=== PATIENT | female | born 1930 | race Caucasian/White ===

== ENCOUNTER 2017-04-06 09:00 | Outpatient (RCR) | payer MEDICARE, OTHER ==
--- NOTE | 2017-03-29 10:22 | PT INITIAL EVALUATION ---
MEDICAL DIAGNOSIS: gait and balance disturbance and low back pain TREATMENT DIAGNOSIS: same, positional vertigo DATE OF ONSET: 06/21/16 SUBJECTIVE: Celestina Lawler presents to physical therapy with complaints of dizziness with positional changes, dragging feet with ambulation, decreased energy, not feeling steady on her feet, and low back pain. She reports that she was given a medication for her back and states that it is feeling better, however, it disturbed her bowels and was placed on another medication for her bowels, which has been helping too. She states that she has dizziness with changes positions and states that it feels like the room is spinning. Furthermore, she reports that she wore a heart monitor for 2 days and will find the results out today or tomorrow. She denies any falls. She states that she has come close but continues to bounce back and forth off the vyas. REHAB PROBLEM LIST: Increased Pain Decreased ROM Decreased Strength Decreased Endurance Decreased Balance Decreased Function Decreased ADL's Decreased Mobility Decreased Gait PREVIOUS MEDICAL HISTORY: See EMR OCCUPATION: Retired OBJECTIVE: Posture: She demonstrated B rounded shoulders, increased thoracic kyphosis, decreased lumbar lordosis. ROM: Trunk AROM: flexion, extension, R/L sidebending: WFL's, B hip flexion, extension, abduction, adduction, B knee flexion extension, B ankle PF and DF: WFL's. Strength: Will test strength next session as we did not have enough time since we focused most of our time on the vestibular examination and treatment Special Tests: (+) rodrigo case pike R/L. (-) horizontal canal. (-) VOR, tracking in an H formation: no deviations...will test balance, low back pain: next session since we focused on resolving the vertigo Mobility: Modified independent Gait: She demonstrated the following gait mechanics: decreased velocity, decreased hip and knee flexion, decreased B foot clearance, increased deviation to the R/L, decreased B pelvic rotation, increased double limb support, and decreased swing phases of gait. Balance: Will test balance next session as we did not have enough time since we focused most of our time on the vestibular examination and treatment Other Objective Findings: BP: 142/80, SPO2%: 93%, HR: 76 BPM ASSESSMENT: Celestina will benefit from skilled physical therapy addressing the listed impairments to improve function, return to prior level of function, and improve QOL. Short Term Goals 2 weeks: Pt will be able to function with 0/10 dizziness (related to vertigo) with positional changes to improve function and QOL. 4 weeks: Pt will demonstrate centralized low back symptoms to improve function and QOL. 6 week: Pt will demonstrate abolished low back symptoms (0/10) to improve function and QOL. 8 weeks: Pt will be able to improve balance strategies, gait mechanics ( decreased shuffling of feet), and improve overall endurance to return to prior level of function. Patient's Goals improve energy, steadiness on her feet, and get rid of dizziness PLAN: Patient to be seen for Manual Therapy/STM/MET Strengthening/condition Ice/Heat Range of Motion Spinal Stabilization Work Hardening/Cond Stretching Neuromuscular Re-ed Closed Chain Program Electrical Stim Posture/Body mechanics Gait Trg/Balance Trg Home Exercise Program Therapeutic Activities 2-3x/week for 2 Months If you have any questions, comments, or concerns about this report or plan, please contact me at . Thank you, Efraín Delgado, PT, DPT [facility]
[~2017-04-06 09:00] MED LIST: DIPH-911 PO; HYDR-385 PO; HYDR-4309 PO; IBUP-56 PO; LEVO-3 PO; LOR5/325 PO; MECL25TA9 PO; MULT-912 PO; NAPR220C12 PO; NITR-105 PO; ONDA4TAB PO; PANT40TA65 PO; TIZA4CAP3 PO; TRAM-420 PO; TYLENOL PM PO; VALE530C2 PO
[2017-04-07] MEDS ORDERED: TRAM-420 PO (12:01)
[2017-04-07] MEDS ORDERED: MECL25TA9 PO (14:09)
--- NOTE | 2017-04-14 12:04 | PT PLAN OF CARE ---
Physician: NABOR Akers Patient is being seen: 1-2x/week Therapist: Efraín Delgado, PT, DPT Medical Diagnosis: gait and balance disturbance and low back pain Treatment Diagnosis: same, positional vertigo Date of Onset: 06/21/16 Date of Initial Evaluation: 03/29/17 Date patient was last seen: 04/06/17 Number of treatments: 3 Number of cancellations/No shows: 0 INTERVENTIONS: Manual Therapy/STM/MET Strengthening/condition Ice/Heat Range of Motion Spinal Stabilization Work Hardening/Cond Stretching Neuromuscular Re-ed Closed Chain Program Electrical Stim Posture/Body mechanics Gait Trg/Balance Trg Home Exercise Program Therapeutic Activities GOALS: 2 weeks: Pt will be able to function with 0/10 dizziness (related to vertigo) with positional changes to improve function and QOL. MET 4 weeks: Pt will demonstrate centralized low back symptoms to improve function and QOL. Progressing 6 week: Pt will demonstrate abolished low back symptoms (0/10) to improve function and QOL. Progressing 8 weeks: Pt will be able to improve balance strategies, gait mechanics ( decreased shuffling of feet), and improve overall endurance to return to prior level of function. Progressed PATIENT'S GOAL: improve energy, steadiness on her feet, and get rid of dizziness Status of Patient's Goals: Progressed in PT Patient Compliance: Good Prognosis: Good Reasons for discontinuing therapy: This is a discharge note for Celestina Lawler. She was progressing well within PT with abolished vertigo symptoms and we were starting to address her low back pain and she was able to demonstrate centralized low back symptoms by the end of our last session. She reports that she developed a ruptured ear drum and has to be discharged in order to resolve the current medical condition prior to proceeding with PT. Posture: She demonstrated B rounded shoulders, increased thoracic kyphosis, decreased lumbar lordosis. ROM: Trunk AROM: flexion, extension, R/L sidebending: WFL's, B hip flexion, extension, abduction, adduction, B knee flexion extension, B ankle PF and DF: WFL's. Strength: Will test strength next session as we did not have enough time since we focused most of our time on the vestibular examination and treatment Palpation: Special Tests: (-) rodrigo case pike R/L. (-) horizontal canal. (-) VOR, tracking in an H formation: no deviations Mobility: Modified independent If you have any questions, please contact me at [phone]. Thank you, Efraín Delgado PT, DPT [facility]
== END 2017-06-27 ==
LOC: PT 09:00
PROVIDERS: ATTEND Nurse Practitioner Family
DX: M54.5 Low back pain (principal); H81.10 Benign paroxysmal vertigo, unspecified ear; R26.89 Other abnormalities of gait and mobility
CPT/HCPCS: 97162

== ENCOUNTER → 2018-07-26 | Outpatient (CLI) | payer MEDICARE, OTHER ==
[~2018-07-26] MED LIST changes: -HYDR-4309 PO; +HYDR-653 PO
--- NOTE | 2018-07-26 13:31 | RADIOLOGY IMAGING REPORT ---
FACILITY: [facility] [place] PATIENT NAME: Celestina Lawler : 1930 MR: [id number] V: [id number] EXAM DATE: ORDERING PHYSICIAN: NOHEMI NAGY TECHNOLOGIST: [place] [facility] [place]estina Law[place] : 1930 Visit/Account:[id number] Date of Sevice: 07/26/2018 Study: MRI lumbar spine without gadolinium contrast. Indication:Low back pain Comparison study:None Technique:Multiplanar MRI sequences were obtained through the lumbar spine without the use of gadolin ium contrast. Findings:The examination demonstrates the presence of normal alignment of the lumbar vertebrae. Ther e is a levoscoliosis of the lumbar spine noted. There is no abnormal signal identified within the krystal mbar or sacral vertebrae. The conus medullaris is located posterior to the T12/L1 disc space level. There is no evidence of abnormality of the lumbar nerve roots. Disc spaces: L1/2: At this level, there is a diffuse disc bulge. There is a superimposed right lateral disc protr usion. There is severe right and mild left neural foraminal stenosis. There is no significant spina l stenosis. L2/3: At this level, there is a diffuse disc bulge with a superimposed right lateral disc protrusion. There is moderate to severe right and no significant left neural foraminal stenosis. There is no s ignificant spinal stenosis. L3/4: At this level, there is a mild diffuse disc bulge. There is no significant spinal stenosis. T here is mild right and no significant left neural foraminal stenosis. L4/5: At this level, there is a diffuse disc bulge. There is facet and ligamentous hypertrophy. The re is moderate spinal stenosis. There is mild to moderate right and moderate to severe left neural f oraminal stenosis. L5/S1: At this level, there is a diffuse disc bulge. There is facet and ligamentous hypertrophy. Th ere is no significant spinal stenosis. There is mild right and moderate left neural foraminal stenos is. 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 There is moderate spinal stenosis present at the L4-5 level. Please see the body of the report for description of individual disc levels. Report Dictated By: Dylon Hilton at 07/26/2018 1:24 PM Report E-Signed By: Dylon Hilton at 07/26/2018 1:27 PM WSN:[id number]
== END ==
LOC: MRI 09:38
PROVIDERS: ATTEND Nurse Practitioner Family
DX: M47.896 Other spondylosis, lumbar region (principal)
CPT/HCPCS: 72148